=== PATIENT | male | born 1995 | race Two or more races ===

== ENCOUNTER 2021-08-22 10:50 | Emergency (ER) | payer OTHER ==
[~2021-08-22] VITALS: Ht 172.7 cm; Wt 104.3 kg
--- NOTE | 2021-08-22 11:28 | NUR ---
BIB PD FOR MEDICAL CLEARANCE, PT C/O COUGH FOR THE PAST 5 DAYS. STABLE VITALS [employer]. AFEBRILE. PD REQUESTING FOR A COVID TEST. AWAITING MD JAY.
--- NOTE | 2021-08-22 11:33 | NUR ---
DR MARTE AT BEDSIDE FOR EVAL.
--- NOTE | 2021-08-22 11:35 | NUR ---
COVID SWAB DONE AND SENT TO LAB
[2021-08-22 12:41] VITALS: BP 136/88
--- NOTE | 2021-08-22 12:41 | NUR ---
Patient discharged to [id number] in stable condition. Written and verbal after care instructions given. Patient verbalizes understanding of instruction.
== END 2021-08-22 12:42 ==
LOC: ER 10:56
DX: R05.9 Cough, unspecified (principal); Z20.822 Contact with and (suspected) exposure to COVID-19; R03.0 Elevated blood-pressure reading, without diagnosis of hypertension
CPT/HCPCS: 87426; 99283; C9803